=== PATIENT | male | born 1990 | race African-American/Black ===

== ENCOUNTER 2020-11-10 06:22 | Emergency (ER) | payer OTHER ==
[~2020-11-10] VITALS: Ht 188 cm; Wt 84.1 kg
[2020-11-10 06:32] VITALS: BP 116/71; TEMP 98.1
[2020-11-10 07:24] LABS: COLLECTION METHOD CLEAN CATCH
[2020-11-10 07:52] LABS: PH 5 (5-8); SQUAMOUS EPITHELIAL 0-2 /hpf; URINE APPEARANCE Hazy; URINE BACTERIA None Seen /hpf; URINE BILIRUBIN Negative (NEGATIVE); URINE BLOOD Negative (NEGATIVE); URINE COLOR Yellow; URINE GLUCOSE Negative (NEGATIVE); URINE KETONE Negative (NEGATIVE); URINE LEUKOCYTE ESTERASE 2+ (NEGATIVE); URINE NITRATE Negative (NEGATIVE); URINE PROTEIN(semi-quant) Negative (NEGATIVE); URINE RBC 0-2 /hpf; URINE UROBILINOGEN Negative (NEGATIVE)
[2020-11-10] MEDS ORDERED: CEPHALEXIN500 M1 PO (08:20)
[2020-11-10 08:25] VITALS: PULSE 65
== END 2020-11-10 08:25 | disposition home or self-care (01) ==
LOC: COL.ER 06:22
PROVIDERS: Emergency Medicine
DX: N39.0 Urinary tract infection, site not specified (principal)
CPT/HCPCS: J0696